=== PATIENT | male | born 1985 | race Caucasian/White ===

== ENCOUNTER 2017-07-16 17:26 | Emergency (ER) | payer OTHER ==
[2017-07-16 17:39] VITALS: BP 128/70; PULSE 62; TEMP 98.1; BMI 33.7
--- NOTE | 2017-07-16 17:39 | PDOC ---
Rapid Medical Evaluation Time Seen by Provider: 07/16/17 17:34 Medical Evaluation: Allergies Allergy/AdvReac Type Severity Reaction Status Date / Time aspirin Allergy Verified 11/03/14 19:10 I have performed a brief in-person evaluation of this patient. The patient presents with a chief complaint of: low back pain when doing exercise x 3 weeks; has taken diclofenac without relief Pertinent physical exam findings: No midline lumbar spine TTP or step offs. I have ordered the following: nothing The patient will proceed to the ED for further evaluation.
[2017-07-16] MEDS ORDERED: IBUPROFEN 400 MG TABLET (FP) PO ONE (18:48)
--- NOTE | 2017-07-16 19:03 | PDOC ---
History of Present Illness - General Chief Complaint: Back Pain Stated Complaint: BACK PAIN Time Seen by Provider: 07/16/17 17:34 History Source: Patient Exam Limitations: No Limitations - History of Present Illness Initial Comments: 07/16/17 19:01 32 yr male with history of back injury 3 weeks ago. pt states he was weight lifting and then was on the floor bending down fixing them and he has strained his low back. Pt has been in [place] and [place] seeing a chiropractor and having shots . pt continues to have pain. no urine or bowel dysfunction. Past History - Past Medical History Allergies/Adverse Reactions: Allergies Allergy/AdvReac Type Severity Reaction Status Date / Time aspirin Allergy Verified 07/16/17 17:35 Home Medications: Ambulatory Orders Cyclobenzaprine HCl [Flexeril -] 10 mg PO TID PRN #21 tablet 07/16/17 Diclofenac Sodium [Voltaren -] 75 mg PO ONCE 07/16/17 Methylprednisolone [Medrol Dose Lorne] 4 mg PO ASDIR #21 tablet 07/16/17 COPD: No - Surgical History Abdominal Surgery: Yes ([email or web address].[email or web address]) - Immunization History Immunization Up to Date: Yes - Suicide/Smoking/Psychosocial Hx Smoking History: Never smoked Have you smoked in the past 12 months: No Information on smoking cessation initiated: No Hx Alcohol Use: No Drug/Substance Use Hx: No Substance Use Type: None *Physical Exam - Vital Signs Last Vital Signs Temp Pulse Resp BP Pulse Ox 98.1 F 62 18 128/70 100 07/16/17 17:35 07/16/17 17:35 07/16/17 17:35 07/16/17 17:35 07/16/17 17:35 - Physical Exam General Appearance: Yes: Nourished, Appropriately Dressed HEENT: positive: EOMI, DAVON, Normal ENT Inspection, TMs Normal, Pharynx Normal. negative: Other Neck: positive: Supple. negative: Tender Respiratory/Chest: positive: Lungs Clear, Normal Breath Sounds. negative: Chest Tender Cardiovascular: positive: Regular Rhythm, Regular Rate Musculoskeletal: positive: Normal Inspection, Muscle Spasm, Other (pos slr left side ). negative: CVA Tenderness, CVA Tenderness (R), CVA Tenderness (L), Vertebral Tenderness Extremity: positive: Normal Capillary Refill, Normal Inspection, Normal Range of Motion ED Treatment Course - RADIOLOGY Radiology Studies Ordered: Category Date Time Status SPINE-LUMBAR ONLY [RAD] Stat Radiology 07/16/17 18:27 Taken Medical Decision Making - Medical Decision Making 07/16/17 19:16 cc: lower back pain neg uriane or bowel dysfunction neg saddle anesthesia will give motrin now pt refused toradol will dc home with flexeril for muscle spasm take the medrol dose pack start tomorrow (steroid) *DC/Admit/Observation/Transfer Diagnosis at time of Disposition: Low back pain Qualifiers: Chronicity: acute Back pain laterality: bilateral Sciatica presence: without sciatica Qualified Code(s): M54.5 - Low back pain - Discharge Dispostion Disposition: HOME Condition at time of disposition: Good - Prescriptions Prescriptions: Cyclobenzaprine HCl [Flexeril -] 10 mg PO TID PRN #21 tablet PRN Reason: Muscle Spasms Methylprednisolone [Medrol Dose Lorne] 4 mg PO ASDIR #21 tablet - Referrals Referrals: Rita Sigala [Primary Care Provider] - Lionel Ceballos MD [Staff Physician] - - Patient Instructions Additional Instructions: apply warm compresses to the lower back every 2hrs for 20 minutes also use over the counter Icy Hot rubbing cream to the lower back take the medrol dose pack as directed take flexeril for any muscle spasm do not drink alcohol no driving, this may make you sleepy - Post Discharge Activity
== END 2017-07-16 19:34 | disposition home or self-care (01) ==
LOC: JERFT 17:26
DX: M54.5 Low back pain (principal); X50.0XXA Overexertion from strenuous movement or load, initial encounter; Y93.B3 Activity, free weights; Y92.89 Other specified places as the place of occurrence of the external cause; Y99.8 Other external cause status
CPT/HCPCS: 72100-TC-FY; 99281-25